=== PATIENT | male | born 1945 | race Caucasian/White ===

== ENCOUNTER 2020-10-08 19:23 | Observation (INO) | payer MEDICARE ==
[~2020-10-08] VITALS: Ht 182.9 cm; Wt 99.2 kg
[2020-10-08] MEDS ORDERED: SODIUM CHLORIDE 0.9% 1,000ML IVBOLUS ONE (19:30)
[2020-10-08] MEDS ORDERED: SODIUM CHLORIDE FLUSH 10ML SYR IVF ONE (19:30)
--- NOTE | 2020-10-08 19:59 | NUR ---
PT. ONLY C/O LEFT HIP PAIN; DISCUSSED WITH KAMILLA REED, NEW ORDERS RECEIVED. PT. RESTING ON GURNEY, NO DISTRESS NOTED. HEART RHYTHM REMAINS IRREGUAL WITH BBB AND SHORT RUNS OF V-TACH, ALONG WITH SINUS OMEGA RUNS. PT. CONTINUES TO DENY CP, DIZZINESS, SOB. AT BS FOR SUPPORT. PT. ON PADS/CRASH CART SINCE ARRIVAL. ALL OTHER MONITORS REMAIN IN PLACE WELL. ALL SAFETY MEASURES OBSERVED.
[2020-10-08] MEDS ORDERED: PLEASE ENTER HEIGHT AND WEIGHT MC SCH (20:00)
[2020-10-08] MEDS ORDERED: HYDROcodone/APAP 5/325 TABLET PO ONE ×2 (20:00→23:30)
[2020-10-08] MEDS ORDERED: HYDROcodone/APAP 5/325 TABLET ONE ×2 (20:03→23:06)
[2020-10-08 20:14] LABS: BASOPHILS % (AUTO) 0 % (0-1); EOSINOPHILS % (AUTO) 2 % (1-7); LYMPHOCYTES % (AUTO) 6 % (22-44); MEAN CORPUSCULAR HEMOGLOBIN 32.8 pg (27.5-34.5); MEAN CORPUSCULAR HGB CONC 33.9 g/dL (33.2-36.2); MEAN PLATELET VOLUME 8.1 fL (7.4-10.4); MONOCYTES % (AUTO) 5 % (2-9); NEUTROPHILS % (AUTO) 87 % (42-75); PLATELET COUNT 135 x10^3/uL (130-400); RED BLOOD COUNT 5.04 x10^6/uL (4.38-5.82); RED CELL DISTRIBUTION WIDTH 13.7 % (9.4-14.8)
[2020-10-08 20:16] LABS: MD NO
[2020-10-08 20:20] LABS: ALANINE AMINOTRANSFERASE 31 U/L (12-78); ALBUMIN 3.3 g/dL (3.4-5.0); CALCIUM 8.2 mg/dL (8.5-10.1); CHLORIDE 112 mmol/L (98-107)
[2020-10-08 20:24] LABS: ALKALINE PHOSPHATASE 45 U/L (45-117); BILIRUBIN,TOTAL 1.1 mg/dL (0.2-1.0); TOTAL PROTEIN 5.7 g/dL (6.4-8.2); TROPONIN I < 0.015 ng/mL (0.000-0.045)
[2020-10-08 20:28] LABS: ANION GAP 4 mmol/L (5-15); CREATININE 1.08 mg/dL (0.7-1.3)
--- NOTE | 2020-10-08 20:36 | NUR ---
DR. GOLD IN TO EVAL PT. AND DISCUSS FURHTER POC WITH PT. AND . PT. CONTINUES TO DENY CP/DIZZINESS/SOB. SATES LEFT HIP PAIN "IS GETTING BETTER, I AM STARTING TO FEEL THE MEDICINE." ALL MONITORS AND PADS REMAIN IN PLACE.
--- NOTE | 2020-10-08 20:46 | NUR ---
REPEATE EKG COMPLETED AND HANDED TO DR. TOVAR AT BS.
--- NOTE | 2020-10-08 21:21 | NUR ---
PT. REPORTS SIGNIFICANT IMPROVEMENT IN LEFT HIP PAIN DOWN TO 2/10. DENIES ANY NEEDS OR OTHER DISCOMFORT AT THIS TIME. INTERMITTENT LBBB REMAINS, NO FURTHER RUNS OF V-TACH HAVE BEEN NOTED. ALL SAFETY MEASURES MAINTAINED.
--- NOTE | 2020-10-08 22:59 | NUR ---
FIRST ATTEMPT TO CALL REPORT TO FLOOR.
[2020-10-08] MEDS ORDERED: HYDROcodone/APAP 5/325 TABLET PO PRN (23:00)
[2020-10-08] MEDS ORDERED: PROMETHAZINE 25 MG/ML, 1ML IM PRN (23:00)
[2020-10-08] MEDS ORDERED: ENALAPRILAT 1.25 MG/ML, 2ML IVPush PRN (23:00)
[2020-10-08] MEDS ORDERED: ACETAMINOPHEN 325 MG TABLET PO PRN (23:00)
--- NOTE | 2020-10-08 23:04 | NUR ---
REPORT TO REGULO MCKEON. FLOOR READY FOR PT. TRANSPORT. PT. REPORTED PAIN TO LEFT HIP COMING BACK. NEW ORDERS RECEIVED BY KAMILLA REED. WILL MEDICATED PRIOR TO TRANSPORT TO FLOOR.
[2020-10-08 23:38] VITALS: BP 145/79
[2020-10-08 23:58] VITALS: BP 145/79
[2020-10-09 01:00] VITALS: BP 118/58
[2020-10-09 05:44] LABS: BASOPHILS % (AUTO) 0 % (0-1); EOSINOPHILS % (AUTO) 4 % (1-7); LYMPHOCYTES % (AUTO) 14 % (22-44); MEAN CORPUSCULAR HGB CONC 34.2 g/dL (33.2-36.2); MEAN PLATELET VOLUME 8.3 fL (7.4-10.4); MONOCYTES % (AUTO) 7 % (2-9); NEUTROPHILS % (AUTO) 76 % (42-75); PLATELET COUNT 123 x10^3/uL (130-400); RED BLOOD COUNT 4.66 x10^6/uL (4.38-5.82); RED CELL DISTRIBUTION WIDTH 13.7 % (9.4-14.8)
[2020-10-09 05:49] LABS: MD NO
[2020-10-09 05:51] LABS: ANION GAP 6 mmol/L (5-15); CALCIUM 8.1 mg/dL (8.5-10.1); CHLORIDE 112 mmol/L (98-107); CHOLESTEROL, TOTAL 113 mg/dL (140-239); CREATININE 0.98 mg/dL (0.7-1.3); TRIGLYCERIDES 52 mg/dL (50-200); VLDL CHOLESTEROL 10 mg/dL (0-25)
[2020-10-09 05:53] LABS: CHOL/HDL RATIO 2.7; HDL CHOL % 37 % (26-37); HDL CHOLESTEROL (DIRECT) 42 mg/dL (40-60); LDL CHOLESTEROL,CALCULATED 61 mg/dL (54-169); LDL/HDL RATIO 1.5 (0.5-3.0)
[2020-10-09 08:00] VITALS: BP 121/68
[2020-10-09] MEDS ORDERED: ATOR20TA37 PO (15:59)
[2020-10-09] MEDS ORDERED: LISI1TAB20 PO (16:02)
[2020-10-09] MEDS ORDERED: LEVO125C4 PO (16:03)
[2020-10-09] MEDS ORDERED: SILD20TA2 PO (16:03)
[2020-10-09 16:14] VITALS: BP 130/73
[2020-10-09 16:16] VITALS: BP 119/71
[2020-10-09 16:17] VITALS: BP 156/71
== END 2020-10-09 17:20 | disposition home or self-care (01) ==
LOC: ED 21:08 → EDIP 21:14 → INTOOBSV 21:14 → ED 21:21 → 5SO 23:22
PROVIDERS: ADMIT Family Medicine; ATTEND Hospitalist
DX: I44.7 Left bundle-branch block, unspecified (principal); M25.552 Pain in left hip; I10 Essential (primary) hypertension; E03.9 Hypothyroidism, unspecified; D72.829 Elevated white blood cell count, unspecified; M19.90 Unspecified osteoarthritis, unspecified site; Z79.899 Other long term (current) drug therapy; Z96.652 Presence of left artificial knee joint; Z96.643 Presence of artificial hip joint, bilateral
CPT/HCPCS: 36415; 71045; 73502; 80048; 80053; 80061; 83735; 84100; 84443; 84484; 85025; 93005; 93306; 93880; 96360; 97162; 99285; G0378; J7030